=== PATIENT | male | born 1965 | race Caucasian/White ===

== ENCOUNTER 2021-04-19 08:49 | Emergency (ER) | payer BC, OTHER ==
[2021-04-19] MEDS ORDERED: Sodium Chloride 0.9% 10 ML Syringe FLUSH PRN (08:53)
[2021-04-19] MEDS ORDERED: Aspirin 81 MG Tab.Chew PO ONE (08:55)
--- NOTE | 2021-04-19 09:01 | EDM.PDOC ---
ED HPI GENERAL MEDICAL PROBLEM - General Stated Complaint: CHEST PAINS Time Seen by Provider: 04/19/21 08:50 Source of Information: Reports: Patient - History of Present Illness INITIAL COMMENTS - FREE TEXT/NARRATIVE: Vinay is a 56 y/o male who presents to the ER with midsternal chest pain that he reports woke him up about 0400. He did report being slightly diaphoretic and somewhat nauseated with it at first. He rates it sharp and 8-9/10. Denies that he has ever had this before. Review of Systems - Review of Systems Review Of Systems: See Below Constitutional: Reports: No Symptoms Eyes: Reports: No Symptoms Ears: Reports: No Symptoms Nose: Reports: No Symptoms Mouth/Throat: Reports: No Symptoms Respiratory: Reports: No Symptoms Cardiovascular: Reports: Chest Pain GI/Abdominal: Reports: Nausea Genitourinary: Reports: No Symptoms Musculoskeletal: Reports: No Symptoms Skin: Reports: No Symptoms Neurological: Reports: No Symptoms Psychiatric: Reports: No Symptoms ED EXAM, GENERAL - Physical Exam Exam: See Below Exam Limited By: No Limitations General Appearance: Alert, WD/WN, No Apparent Distress (Adult male) Ears: Normal External Exam, Normal Canal, Hearing Grossly Normal Nose: Normal Inspection, Normal Mucosa Throat/Mouth: Normal Inspection, Normal Lips, Normal Oropharynx, Normal Voice Head: Atraumatic, Normocephalic Neck: Supple Respiratory/Chest: No Respiratory Distress, Lungs Clear, Normal Breath Sounds, Chest Non-Tender Cardiovascular: Normal Peripheral Pulses, Regular Rate, Rhythm, No Edema, No Murmur GI/Abdominal: Normal Bowel Sounds, Soft, Non-Tender (Male) Exam: Deferred Rectal (Males) Exam: Deferred Back Exam: Normal Inspection Extremities: Normal Inspection, Normal Range of Motion, No Pedal Edema, Normal Capillary Refill Neurological: Alert, Oriented, CN II-XII Intact, No Motor/Sensory Deficits Psychiatric: Normal Affect, Normal Mood Skin Exam: Warm, Dry, Intact, Normal Color Lymphatic: No Adenopathy #1 Interpretation EKG Date: 04/19/21 Time: 08:47 Rhythm: NSR Rate (Beats/Min): 52 [place]: Normal P-Wave: Present QRS: Normal ST-T: Elevated EKG Interpretation Comments: ST Elevation Leads II,II, and aVf, Early STEMI Course - Vital Signs Text/Narrative:: 0850 The patient was seen by the [employer]. Labs and EKG done. CXR ordered. He was given ASA 324mg po and also Nitro 0.4mg SL for the chest pain. IV fluids started. [address] elevation in Leads II, III, and aVf. Morphine 1mg IVP given for pain. 0915 Viki Mason contacted and Dr Vasques, floor assembler geriatric personal care aide, advised transport and heparin. Heparin 4000 units bolus then 1000 units/hr started. Patient continues to have 9/10 chest pain, Morphine titrated for pain. 0930 BP dropped from Morphine, IV fluids given. [facility] arrive and pt left with them for [place] Last Recorded V/S: Last Vital Signs Temp Pulse Resp BP 106/67 04/19/21 09:17 Pulse Ox - Orders/Labs/Meds Orders: Active Orders 24 hr Category Date Time Status EKG Documentation Completion [RC] STAT Care 04/19/21 08:54 Active Chest 1V Frontal [CR] Stat Exams 04/19/21 08:54 Ordered AMYLASE [CHEM] Stat Lab 04/19/21 08:53 Ordered C-REACTIVE PROTEIN [CHEM] Stat Lab 04/19/21 08:53 Ordered COMPREHENSIVE METABOLIC PN,CMP [CHEM] Stat Lab 04/19/21 08:53 Ordered INR,PT,PROTHROMBIN TIME [COAG] Stat Lab 04/19/21 08:54 Ordered LIPASE [CHEM] Stat Lab 04/19/21 08:53 Ordered MAGNESIUM [CHEM] Stat Lab 04/19/21 08:53 Ordered TROPONIN I HIGH SENSITIVITY [CHEM] Stat Lab 04/19/21 08:53 Ordered TSH ULTRASENSITIVE [CHEM] Stat Lab 04/19/21 08:53 Ordered UA RFX ANTON AND CULT IF INDIC [URIN] Stat Lab 04/19/21 08:54 Ordered Heparin Sodium Med 04/19/21 09:15 Once 4,000 units IVPUSH .BOLUS ONE Heparin Sodium/0.45% NaCl [Heparin 25,000 Units in 1/2 Med 04/19/21 09:15 Ordered NS 500 ML] 25,000 units in 500 ml IV TITRATE Sodium Chloride 0.9% [Normal Saline] 1,000 ml Med 04/19/21 09:02 Active IV ONETIME Sodium Chloride 0.9% [Saline Flush] Med 04/19/21 08:53 Active 10 ml FLUSH ASDIRECTED PRN Saline Lock Insert [OM.PC] Stat Oth 04/19/21 08:54 Ordered Medication Orders Heparin Sodium (Porcine) (Heparin Sodium 5,000 Units/Ml Vial) 4,000 units IVPUSH .BOLUS ONE Stop: 04/19/21 09:16 Sodium Chloride (Normal Saline) 1,000 mls @ 999 mls/hr IV ONETIME ONE Stop: 04/19/21 10:02 Last Admin: 04/19/21 09:17 Dose: 999 mls/hr Documented by: BONNIE Heparin Sodium/Sodium Chloride (Heparin 25,000 Units In 1/2 Ns 500 Ml) 25,000 units in 500 mls @ 20 mls/hr IV TITRATE NADJA; Protocol Sodium Chloride (Sodium Chloride 0.9% 10 Ml Syringe) 10 ml FLUSH ASDIRECTED PRN PRN Reason: Keep Vein Open Labs: Laboratory Tests 04/19/21 Range/Units 09:07 WBC 16.4 H (4.0-10.0) x10^3/uL RBC 4.82 (4.5-6.0) x10^6/uL Hgb 14.6 (14.0-18.0) g/dL Hct 43.3 (40.0-52.0) % MCV 89.8 (78.0-93.0) fL MCH 30.3 (26.0-32.0) pg MCHC 33.7 (32.0-36.0) g/dL RDW Coeff of Saundra 12.8 (10.0-15.0) % Plt Count 344 (130-400) x10^3/uL Immature Gran % (Auto) 0.40 (0.00-0.43) % Neut % (Auto) 85.5 H (50.0-80.0) % Lymph % (Auto) 8.5 L (25.0-50.0) % [place] % (Auto) 5.1 (2.0-11.0) % Eos % (Auto) 0.3 (0.0-4.0) % Baso % (Auto) 0.2 (0.2-1.2) % Neut # (Auto) 14.0 H (1.8-7.7) x10^3/uL Lymph # (Auto) 1.4 (1.0-4.8) x10^3/uL [place] # (Auto) 0.8 (0.0-0.8) x10^3/uL Eos # (Auto) 0.1 (0.0-0.5) x10^3/uL Baso # (Auto) 0.0 (0.0-0.2) x10^3/uL Immature Gran # (Auto) 0.06 (0.00-0.07) x10^3/uL Meds: Medications Generic Name Dose Route Start Last Admin Trade Name Pete PRN Reason Stop Dose Admin Heparin Sodium (Porcine) 4,000 units 04/19/21 09:15 Heparin Sodium 5,000 Units/Ml Vial IVPUSH 04/19/21 09:16 .BOLUS ONE Sodium Chloride 1,000 mls @ 999 mls/hr 04/19/21 09:02 04/19/21 09:17 Normal Saline IV 04/19/21 10:02 999 mls/hr ONETIME ONE Administration Heparin Sodium/Sodium Chloride 25,000 units in 500 mls @ 20 mls/hr 04/19/21 09:15 Heparin 25,000 Units In 1/2 Ns 500 Ml IV TITRATE NADJA Protocol 1,000 UNITS/HR Sodium Chloride 10 ml 04/19/21 08:53 Sodium Chloride 0.9% 10 Ml Syringe FLUSH ASDIRECTED PRN Keep Vein Open Discontinued Medications Generic Name Dose Route Start Last Admin Trade Name Pete PRN Reason Stop Dose Admin Aspirin 324 mg 04/19/21 08:55 04/19/21 09:17 Aspirin 81 Mg Tab.Chew PO 04/19/21 08:56 324 mg ONETIME ONE Administration Morphine Sulfate 1 mg 04/19/21 09:02 04/19/21 09:16 Morphine 2 Mg/Ml Syringe IVPUSH 04/19/21 09:03 1 mg ONETIME ONE Administration Nitroglycerin 0.4 mg 04/19/21 09:12 04/19/21 09:17 Nitroglycerin 0.4 Mg Tab.Sl SL 04/19/21 09:13 0.4 mg ONETIME ONE Administration Departure - Departure Time of Disposition: :22 Disposition: DC/Tfer to Acute Hospital 02 Condition: Good Clinical Impression: ST elevation (STEMI) myocardial infarction Qualifiers: Involved coronary artery: unspecified coronary artery Qualified Code(s): I21.3 - ST elevation (STEMI) myocardial infarction of unspecified site - Discharge Information Forms: Interfacility Transfer LEE Sepsis Event Note (ED) - Focused Exam Vital Signs: Vital Signs BP 04/19/21 09:17 106/67 - Problem List & Annotations (1) ST elevation (STEMI) myocardial infarction SNOMED Code(s): 45262207, 02922511 Code(s): I21.3 - ST ELEVATION (STEMI) MYOCARDIAL INFARCTION OF UNSP SITE Status: Acute Current Visit: Yes Annotation/Comment:: Heparin gtt started. Morphine given for pain. Transfered to [facility] via [facility]. Qualifiers: Involved coronary artery: unspecified coronary artery Qualified Code(s): I21.3 - ST elevation (STEMI) myocardial infarction of unspecified site - Problem List Review Problem List Initiated/Reviewed/Updated: Yes - My Orders Last 24 Hours: My Active Orders 04/19/21 08:53 AMYLASE [CHEM] Stat C-REACTIVE PROTEIN [CHEM] Stat COMPREHENSIVE METABOLIC PN,CMP [CHEM] Stat LIPASE [CHEM] Stat MAGNESIUM [CHEM] Stat TROPONIN I HIGH SENSITIVITY [CHEM] Stat TSH ULTRASENSITIVE [CHEM] Stat Sodium Chloride 0.9% [Saline Flush] 10 ml FLUSH ASDIRECTED PRN 04/19/21 08:54 EKG Documentation Completion [RC] STAT Chest 1V Frontal [CR] Stat INR,PT,PROTHROMBIN TIME [COAG] Stat UA RFX ANTON AND CULT IF INDIC [URIN] Stat Saline Lock Insert [OM.PC] Stat 04/19/21 09:02 Sodium Chloride 0.9% [Normal Saline] 1,000 ml IV ONETIME 04/19/21 09:15 Heparin Sodium 4,000 units IVPUSH .BOLUS ONE Heparin Sodium/0.45% NaCl [Heparin 25,000 Units in 1/2 NS 500 ML] 25,000 units in 500 ml IV TITRATE - Assessment/Plan Last 24 Hours: My Active Orders 04/19/21 08:53 AMYLASE [CHEM] Stat C-REACTIVE PROTEIN [CHEM] Stat COMPREHENSIVE METABOLIC PN,CMP [CHEM] Stat LIPASE [CHEM] Stat MAGNESIUM [CHEM] Stat TROPONIN I HIGH SENSITIVITY [CHEM] Stat TSH ULTRASENSITIVE [CHEM] Stat Sodium Chloride 0.9% [Saline Flush] 10 ml FLUSH ASDIRECTED PRN 04/19/21 08:54 EKG Documentation Completion [RC] STAT Chest 1V Frontal [CR] Stat INR,PT,PROTHROMBIN TIME [COAG] Stat UA RFX ANTON AND CULT IF INDIC [URIN] Stat Saline Lock Insert [OM.PC] Stat 04/19/21 09:02 Sodium Chloride 0.9% [Normal Saline] 1,000 ml IV ONETIME 04/19/21 09:15 Heparin Sodium 4,000 units IVPUSH .BOLUS ONE Heparin Sodium/0.45% NaCl [Heparin 25,000 Units in 1/2 NS 500 ML] 25,000 units in 500 ml IV TITRATE Plan: See above
[2021-04-19] MEDS ORDERED: Sodium Chloride 0.9% 1,000 ML IV ONE (09:02)
[2021-04-19] MEDS ORDERED: Nitroglycerin 0.4 MG Tab.SL SL ONE (09:12)
[2021-04-19] MEDS ORDERED: Heparin Sodium/0.45% NaCl 25,000 UNITS/500 ML BAG IV SCH (09:15)
[2021-04-19] MEDS ORDERED: Heparin Sodium 5,000 Units/ML Vial IVPUSH ONE (09:15)
[2021-04-19] MEDS: Morphine 2 MG/ML SYRINGE IVPUSH ONE ×2 (09:16→09:29)
--- NOTE | 2021-04-19 09:39 | CR ---
[id number] RAD/RAD Chest PA or AP 1V EXAM: RAD Chest PA or AP 1V INDICATION: CHEST PAIN. COMPARISON: None. DISCUSSION: Cardiomediastinal silhouette is normal in size and contour. No infiltrate, effusion, pneumothorax, or edema. IMPRESSION: No acute cardiopulmonary abnormality. Mookie Mason DO 04/19/21 0938 Thank you for allowing us to participate in the care of your patient.
[2021-04-19 09:40] LABS: CHLORIDE,CL 102 mmol/L (98-107); SODIUM,NA 141 mmol/L (136-145)
[2021-04-19 09:42] LABS: ANION GAP 12.3 mmol/L (5-15)
== END 2021-04-19 09:35 | disposition short-term general hospital (02) ==
LOC: VM.ED 08:49
DX: I21.3 ST elevation (STEMI) myocardial infarction of unspecified site (principal)
CPT/HCPCS: 71045; 80053; 82150; 83690; 83735; 84443; 84484; 85025; 85610; 86140; 93005; 93010; 96374; 96375; 99284; 99285-25; A9270-GY; J1644; J2270; J7030

== ENCOUNTER 2021-12-09 01:59 | Inpatient (IN) | payer BC ==
[2021-12-09] MEDS ORDERED: Sodium Chloride 0.9% 10 ML Syringe FLUSH PRN (02:03)
[2021-12-09] MEDS ORDERED: Lactated Ringers 1,000 ML IV ONE ×2 (02:04→04:50)
[2021-12-09] MEDS ORDERED: HYDROmorphone 1 MG/ML Syringe IVPUSH ONE (02:04)
[2021-12-09] MEDS ORDERED: Ondansetron 4 MG/2 ML SDV IVPUSH ONE (02:04)
[2021-12-09 02:40] LABS: PTT,PARTIAL THROMBOPLSTIN TIME 25.7 SEC (20.5-30.9)
[2021-12-09 02:50] LABS: CHLORIDE,CL 97 mmol/L (98-107); SODIUM,NA 134 mmol/L (136-145)
[2021-12-09 02:53] LABS: ANION GAP 14.1 mmol/L (5-15); ESTIMATED GFR 89 mL/min (>=60)
[2021-12-09] MEDS ORDERED: Iopamidol 612 MG/ML 100 ML Bottle IVPUSH ONE (02:59)
[2021-12-09 03:14] LABS: METHAMPHETAMINE SCREEN, URINE POSITIVE (NEGATIVE); THC SCREEN,URINE 50 NG/ML POSITIVE (NEGATIVE)
[2021-12-09 03:15] LABS: BARBITURATE SCREEN,URINE NEGATIVE (NEGATIVE); BENZODIAZEPINES SCREEN,URINE NEGATIVE (NEGATIVE); BUPRENORPHINE SCREEN,URINE NEGATIVE (NEGATIVE)
[2021-12-09] MEDS ORDERED: Morphine 4 MG/ML Syringe IVPUSH PRN (04:58)
[2021-12-09] MEDS ORDERED: Ondansetron 4 MG/2 ML SDV IVPUSH PRN (04:58)
[2021-12-09] MEDS ORDERED: Sodium Chloride 0.9% 1,000 ML IV SCH ×2 (05:00→10:30)
[2021-12-09] MEDS ORDERED: Prochlorperazine 5 MG Tab PO PRN (10:28)
[2021-12-09] MEDS: D5 1/2 NS w/ 20 mEq/L KCl 1,000 ML IV SCH ×2 (13:29→20:25)
[2021-12-09 16:46] LABS: ANION GAP 13.4 mmol/L (5-15)
[2021-12-09] MEDS: Morphine 4 MG/ML Syringe IVPUSH PRN ×2 (20:25→22:52)
[2021-12-09] MEDS: Enoxaparin 40 MG/0.4 ML Syringe SUBCUT SCH (20:28)
[2021-12-09] MEDS ORDERED: HYDROmorphone 1 MG/ML Syringe IVPUSH PRN (22:58)
[2021-12-10] MEDS: D5 1/2 NS w/ 20 mEq/L KCl 1,000 ML IV SCH ×3 (03:57→18:10)
[2021-12-10] MEDS ORDERED: Bisacodyl 10 MG Supp RECTAL PRN (10:50)
[2021-12-10] MEDS: Enoxaparin 40 MG/0.4 ML Syringe SUBCUT SCH (20:43)
[2021-12-10] MEDS ORDERED: Magnesium Hydroxide 400 MG/5 ML Susp 30 ML Cup PO STA (20:44)
[2021-12-11] MEDS: D5 1/2 NS w/ 20 mEq/L KCl 1,000 ML IV SCH (01:54)
== END 2021-12-11 05:36 | disposition home or self-care (01) | DRG 282 ==
LOC: VM.ED 01:59 → VM.MS 04:16
PROVIDERS: ADMIT Physician Assistant; ATTEND Physician Assistant
DX: K85.20 Alcohol induced acute pancreatitis without necrosis or infection (principal); K85.30 Drug induced acute pancreatitis without necrosis or infection; T43.625A Adverse effect of amphetamines, initial encounter
CPT/HCPCS: 36415; 74177; 80053; 80305-QW; 80307; 81001; 82150; 83605; 83690; 83735; 84100; 85025; 85610; 85730; 86140; 87040; 96361; 96374; 96375; 99285-25; A9270-GY; J1170; J1650; J2270; J2405; J3480; J7030; J7120; Q9967

== ENCOUNTER 2022-12-06 22:00 | Inpatient (IN) | payer BC ==
[2022-12-06] MEDS ORDERED: Sodium Chloride 0.9% 10 ML Syringe FLUSH PRN (22:09)
[2022-12-06] MEDS ORDERED: HYDROmorphone 1 MG/ML Syringe IVPUSH ONE (22:11)
[2022-12-06] MEDS ORDERED: Ondansetron 4 MG/2 ML SDV IVPUSH ONE (22:11)
[2022-12-06] MEDS ORDERED: Sodium Chloride 0.9% 1,000 ML IV SCH (22:15)
[2022-12-06 22:35] LABS: BASOPHILS PERCENT AUTO 0.1 % (0.2-1.2); EOSINOPHILS PERCENT AUTO 0.1 % (0.0-4.0); HEMATOCRIT 44.6 % (40.0-52.0); HEMOGLOBIN 15.4 g/dL (14.0-18.0); IMMATURE GRAN ABSOLUTE AUTO 0.05 x10^3/uL (0.00-0.07); LYMPHOCYTES ABSOLUTE AUTO 1.3 x10^3/uL (1.0-4.8); LYMPHOCYTES PERCENT AUTO 8.3 % (25.0-50.0); MEAN CORPUSCULAR HEMOGLOBIN 29.8 pg (26.0-32.0); MEAN CORPUSCULAR HGB CONC 34.5 g/dL (32.0-36.0); MEAN CORPUSCULAR VOLUME 86.3 fL (78.0-93.0); MONOCYTES ABSOLUTE AUTO 0.7 x10^3/uL (0.0-0.8); MONOCYTES PERCENT AUTO 4.4 % (2.0-11.0); NEUTROPHILS ABSOLUTE AUTO 13.6 x10^3/uL (1.8-7.7); NEUTROPHILS PERCENT AUTO 86.8 % (50.0-80.0); PLATELET COUNT,PLT 328 x10^3/uL (130-400); RED BLOOD CELL COUNT 5.17 x10^6/uL (4.5-6.0); WHITE BLOOD CELL COUNT,WBC 15.7 x10^3/uL (4.0-10.0)
[2022-12-06 22:57] LABS: INR 0.9 (2.0-3.5); PROTHROMBIN TIME 9.9 SEC (9.5-12.2); PTT,PARTIAL THROMBOPLSTIN TIME 27.2 SEC (23.6-33.6)
[2022-12-06 23:00] LABS: LACTIC ACID 1.2 mmol/L (0.4-2.0)
[2022-12-06 23:07] LABS: A/G RATIO 1.24; ALBUMIN 4.2 g/dL (3.4-5.0); BILIRUBIN TOTAL 0.5 mg/dL (0.2-1.0); CALCIUM 9.9 mg/dL (8.5-10.1); CREATININE 0.9 mg/dL (0.70-1.30); EST CRCL DRUG DOSING (CG) 85.69 mL/min; PHOSPHORUS 3.3 mg/dL (2.6-4.7); POTASSIUM,K 4.4 mmol/L (3.5-5.1); PROTEIN TOTAL,TP 7.6 g/dL (6.4-8.2)
[2022-12-06 23:08] LABS: ANION GAP 13.4 mmol/L (5-15)
[2022-12-06] MEDS ORDERED: Iopamidol 612 MG/ML 100 ML Bottle IVPUSH ONE (23:18)
[2022-12-06] MEDS ORDERED: HYDROmorphone 0.5 MG/0.5 ML Syringe IVPUSH ONE (23:48)
[2022-12-06] MEDS ORDERED: Lactated Ringers 1,000 ML IV ONE (23:52)
[2022-12-07] MEDS ORDERED: Ondansetron 4 MG/2 ML SDV IVPUSH ONE (01:38)
[2022-12-07] MEDS: Lactated Ringers 1,000 ML IV SCH ×5 (04:09→21:17)
[2022-12-07] MEDS: HYDROmorphone 0.5 MG/0.5 ML Syringe IVPUSH PRN ×5 (05:05→23:56)
[2022-12-07 06:57] LABS: BASOPHILS PERCENT AUTO 0.1 % (0.2-1.2); EOSINOPHILS PERCENT AUTO 0.1 % (0.0-4.0); IMMATURE GRAN ABSOLUTE AUTO 0.03 x10^3/uL (0.00-0.07); LYMPHOCYTES ABSOLUTE AUTO 1.3 x10^3/uL (1.0-4.8); LYMPHOCYTES PERCENT AUTO 7.8 % (25.0-50.0); MEAN CORPUSCULAR HEMOGLOBIN 28.9 pg (26.0-32.0); MEAN CORPUSCULAR HGB CONC 33.3 g/dL (32.0-36.0); MEAN CORPUSCULAR VOLUME 86.8 fL (78.0-93.0); NEUTROPHILS ABSOLUTE AUTO 14.6 x10^3/uL (1.8-7.7); NEUTROPHILS PERCENT AUTO 85.8 % (50.0-80.0); PLATELET COUNT,PLT 321 x10^3/uL (130-400); RED BLOOD CELL COUNT 4.84 x10^6/uL (4.5-6.0)
[2022-12-07 07:22] LABS: CREATININE 0.9 mg/dL (0.70-1.30); EST CRCL DRUG DOSING (CG) 85.69 mL/min; POTASSIUM,K 4.4 mmol/L (3.5-5.1)
[2022-12-07 07:23] LABS: ANION GAP 12.4 mmol/L (5-15)
[2022-12-08] MEDS: Lactated Ringers 1,000 ML IV SCH ×2 (01:19→05:24)
[2022-12-08 07:40] LABS: BASOPHILS PERCENT AUTO 0.2 % (0.2-1.2); EOSINOPHILS ABSOLUTE AUTO 0.1 x10^3/uL (0.0-0.5); EOSINOPHILS PERCENT AUTO 0.4 % (0.0-4.0); HEMATOCRIT 36.4 % (40.0-52.0); HEMOGLOBIN 12.5 g/dL (14.0-18.0); IMMATURE GRAN ABSOLUTE AUTO 0.04 x10^3/uL (0.00-0.07); LYMPHOCYTES ABSOLUTE AUTO 1.7 x10^3/uL (1.0-4.8); LYMPHOCYTES PERCENT AUTO 12.3 % (25.0-50.0); MEAN CORPUSCULAR HEMOGLOBIN 29.8 pg (26.0-32.0); MEAN CORPUSCULAR HGB CONC 34.3 g/dL (32.0-36.0); MEAN CORPUSCULAR VOLUME 86.7 fL (78.0-93.0); MONOCYTES ABSOLUTE AUTO 1.1 x10^3/uL (0.0-0.8); MONOCYTES PERCENT AUTO 8.2 % (2.0-11.0); NEUTROPHILS ABSOLUTE AUTO 10.6 x10^3/uL (1.8-7.7); NEUTROPHILS PERCENT AUTO 78.6 % (50.0-80.0); PLATELET COUNT,PLT 261 x10^3/uL (130-400); WHITE BLOOD CELL COUNT,WBC 13.5 x10^3/uL (4.0-10.0)
[2022-12-08 08:06] LABS: A/G RATIO 1.03; ALBUMIN 3.1 g/dL (3.4-5.0); BILIRUBIN TOTAL 0.5 mg/dL (0.2-1.0); CALCIUM 8.3 mg/dL (8.5-10.1); CREATININE 0.8 mg/dL (0.70-1.30); EST CRCL DRUG DOSING (CG) 96.4 mL/min; PROTEIN TOTAL,TP 6.1 g/dL (6.4-8.2)
== END 2022-12-08 10:00 | disposition home or self-care (01) | DRG 282 ==
LOC: VM.ED 22:00 → UNDOADMOB 12-07 00:58 → VM.MS 12-07 00:58 → OBSVTOIN 12-07 15:00
PROVIDERS: ADMIT Physician Assistant; ATTEND Physician Assistant
DX: K85.20 Alcohol induced acute pancreatitis without necrosis or infection (principal); K86.0 Alcohol-induced chronic pancreatitis; F17.200 Nicotine dependence, unspecified, uncomplicated
CPT/HCPCS: 36415; 74177; 80048; 80053; 80307; 82150; 83605; 83690; 83735; 84100; 84484; 85025; 85610; 85730; 93005; 96361; 96374; 96375; 96376; 99285-25; G0378; J1170; J2405; J7030; J7120; Q9967